=== PATIENT | male | born 1980 | race Caucasian/White ===

== ENCOUNTER 2024-02-29 14:11 | Emergency (ER) | payer MEDICAID, SELFPAY ==
[2024-02-29] VITALS (8 sets, daily range): BP systolic 106–150; BP diastolic 67–89; PULSE 85–100; RESP 15–18; TEMP 36.6–36.8; O2SAT 96–98
--- NOTE | ~2024-02-29 | CT_ITS ---
EXAMINATION: CT brain wo con DATE: 02/29/2024 15:13 INDICATION: Seizure. TECHNIQUE: Computed tomography (CT) of the head was performed without intravenous contrast. The mA wa s adjusted according to patient size. Iterative reconstruction technique was employed. The dose-lengt h product was 605.33 mGy-cm. COMPARISON: None FINDINGS: There is no intracranial hemorrhage, acute infarction, or abnormal intracranial mass lesion . The ventricles are normal in size. There is mild mucosal thickening in the ethmoid sinuses. The mas toid air cells are normal. IMPRESSION: 1. Normal brain. Reviewed, dictated and finalized at location A. IMPRESSION: 1. Normal brain.
--- NOTE | 2024-02-29 15:13 | ED.SEIZURE ---
HPI - Seizure General Chief Complaint: Seizure Stated Complaint: seizures Time Seen by Provider: 02/29/24 14:59 History of Present Illness HPI Narrative: Patient presenting after having a witnessed seizure at [facility], he has never had any seizures in the past, denies any complaints right now other than feeling tired and dizzy present large here states that he witnessed the seizure which showed 20 grand mouth seizure and lasted for several minutes until EMS arrived and gave him Versed, after which he stopped and was slightly confused afterwards, and is now coming back to baseline Related Data Allergies Allergy/AdvReac Type Severity Reaction Status Date / Time codeine AdvReac Nausea and Verified 02/29/24 16:55 Vomiting Review of Systems Review of Systems: All systems reviewed & are unremarkable except as noted in HPI and below Exam Narrative: EXAMINATION OF ORGAN SYSTEMS/BODY AREAS: Constitutional: Vital signs per nursing GENERAL:[No acute distress, non-toxic appearing.] HEAD: Normal with no signs of head trauma. EYES: EOMI, conjunctiva normal ENT: Hearing grossly intact LUNGS: Nonlabored breathing. HEART: [Regular rate and rhythm] ABD: Nondistended EXT: Normal range of motion SKIN: [No rashes or lesions.] NEURO: [Alert and oriented x 3. No gross focal sensory or strength deficits.] PSYCH: Normal affect Course Vital Signs Vital signs: Vital Signs Temperature 98.3 F 02/29/24 14:19 Pulse Rate 100 02/29/24 14:19 Respiratory Rate 16 02/29/24 14:19 Blood Pressure 128/85 02/29/24 14:19 Pulse Oximetry 98 02/29/24 14:19 Oxygen Delivery Room Air 02/29/24 14:19 Temperature 97.8 F 02/29/24 17:01 Pulse Rate 92 02/29/24 17:01 Respiratory Rate 16 02/29/24 17:01 Blood Pressure 140/89 02/29/24 17:01 Pulse Oximetry 97 02/29/24 17:01 Oxygen Delivery Room Air 02/29/24 16:15 MDM - Seizure MDM Narrative Medical decision making narrative: 43-year-old male presenting with new onset seizures occurring today, no personal history however he states he thinks the cousin may have had seizures. Denies any axis drugs or alcohol since he has been present for the last 2 months, he is A&O x4 here, the episodes were witnessed and do seem compatible with epileptic seizures. Workup initiated including CT head which is unremarkable other than urinary tract infection, I did ask patient is concerned for possible STD and he says that his car from [facility], I will put him on antibiotics for UTI versus STDs. He has been observed here for hours and has not had any recurrence of symptoms so I do feel he is stable for discharge at this time with follow-up to Neurology. I did let him know that if he had another episode he come back immediately and we will start him on antiseizure medications at that time. Patient agreeable to this plan. At time of discharge he had no neurologic deficits and no symptoms Lab Data 02/29/24 15:28 02/29/24 15:28 Labs: Lab Results 02/29/24 02/29/24 Range/Units 15:28 15:54 WBC 7.4 (4.5-10.0) K/mm3 RBC 5.21 (4.6-6.20) M/mm3 Hgb 15.5 (14.0-18.0) g/dL Hct 44.8 (42.0-52.0) % MCV 86.0 (80-100) fl MCH 29.8 (26-34) pg MCHC 34.6 (32-36) g/dl RDW 13.3 (11.5-14.5) % Plt Count 218 (150-375) k/mm3 MPV 9.2 (7.4-10.4) fl Immature Gran % (Auto) 0.3 (0-0.5) % Neut % (Auto) 73.7 H (45.5-73.1) % Lymph % (Auto) 17.8 L (18.3-44.2) % [place] % (Auto) 7.1 (2.6-8.5) % Eos % (Auto) 0.4 (0-4.4) % Baso % (Auto) 0.7 (0.2-1.2) % Lymph # (Auto) 1.32 (0.9-3.2) K/mm3 [place] # (Auto) 0.5 (0.1-0.6) K/mm3 Eos # (Auto) 0.0 (0-0.3) K/mm3 Baso # (Auto) 0.1 (0.0-0.1) K/mm3 Abs Immat Gran (auto) 0.02 (0.00-0.031) K/mm3 Absolute Neuts (auto) 5.5 (1.3-6.7) K/mm3 Absolute Nucleated RBC 0.000 (0.0-0.012) K/mm3 Nucleated RBC % 0.0 (0.0-0.2) % PT 13.6 (11.1-14.7) Seconds INR 1.0
[2024-02-29 15:36] LABS: Basophils Absolute Auto 0.1 K/mm3 (0.0-0.1); Basophils Percent Auto 0.7 % (0.2-1.2); Eosinophils Percent Auto 0.4 % (0-4.4); Hematocrit 44.8 % (42.0-52.0); Hemoglobin 15.5 g/dL (14.0-18.0); Immature Granulocyte Absolute 0.02 K/mm3 (0.00-0.031); Immature Granulocyte Percent A 0.3 % (0-0.5); Lymphocytes Absolute Auto 1.32 K/mm3 (0.9-3.2); Lymphocytes Percent Auto 17.8 % (18.3-44.2); Mean Corpuscular HGB Conc 34.6 g/dl (32-36); Mean Corpuscular Hemoglobin 29.8 pg (26-34); Mean Platelet Volume 9.2 fl (7.4-10.4); Monocytes Absolute Auto 0.5 K/mm3 (0.1-0.6); Monocytes Percent Auto 7.1 % (2.6-8.5); Neutrophils Absolute Auto 5.5 K/mm3 (1.3-6.7); Neutrophils Percent Auto 73.7 % (45.5-73.1); Platelet Count Result 218 k/mm3 (150-375); Red Blood Count 5.21 M/mm3 (4.6-6.20); Red Cell Distribution Width 13.3 % (11.5-14.5); White Blood Count 7.4 K/mm3 (4.5-10.0)
[2024-02-29 15:45] LABS: Lactic Acid Reflex 1.7 mmol/L (0.7-2.0)
[2024-02-29 15:46] LABS: Alanine Aminotransferase 17 U/L (6-50); Albumin Level 4.6 g/dL (3.5-5.1); Alkaline Phosphatase 58 U/L (38-126); Anion Gap 8 mmol/L (4-12); Aspartate Amino Transferase 23 U/L (17-59); Bilirubin,Total 0.6 mg/dL (0.2-1.3); Blood Urea Nitrogen 15 mg/dL (9-20); Calcium 9.2 mg/dL (8.4-10.2); Carbon Dioxide 25 mmol/L (22-30); Chloride 103 mmol/L (98-107); Estimated CRCL calculation 104 ml/min; Estimated Glomerular Filt Rate > 60; Glucose 151 mg/dL (65-110); Potassium 4.2 mmol/L (3.4-5.0); Prothrombin Time 13.6 Seconds (11.1-14.7); Sodium 136 mmol/L (137-145)
[2024-02-29 15:47] LABS: Partial Thromboplastin Time 24.2 Seconds (22.3-36.8)
[2024-02-29 16:15] LABS: Appearance Urine Cloudy (Clear); Bacteria Urine 4+ /hpf; Bilirubin Urine Negative (Negative); Blood Urine Negative (Negative); Color Urine Dark Yellow (Yellow); Glucose Urine UA Negative (Negative); Ketones Urine Trace mg/dL (Negative); Leukocyte Esterase Ur 2+ LEU/UL (Negative); Need Manual Microscopic Reviewed; Nitrate Urine Positive (Negative); Protein Urine Trace mg/dL (Negative); RBC Urine 0-2 /hpf (0-2); Specific Grav Ur 1.021 (1.001-1.035); Squamous Epithelial Cell Urine None Seen /hpf (Few); WBC Urine 51-100 /hpf (0-3)
[2024-02-29 16:16] LABS: Add Urine Microscopic? YES
[2024-02-29 16:19] LABS: Amphetamine Screen Urine Negative (Negative); Barbiturate Screen Urine Negative (Negative); Benzodiazepines Screen Urine Positive (Negative); Cannabinoid Screen Urine Negative (Negative); Cocaine Screen Urine Negative (Negative); Methadone Screen Urine Negative (Negative); Opiate Screen Urine Negative (Negative); Phencyclidine Screen Urine Negative (Negative)
[2024-02-29] MEDS: DOXYCYCLINE HYCLATE 100 MG TABLET PO (16:56)
== END 2024-02-29 17:09 ==
PROVIDERS: Emergency Medicine; Emergency Provider Emergency Medicine
DX: R56.9 Unspecified convulsions (principal)
CPT/HCPCS: 36415; 70450; 80053; 80307; 81001; 83605; 85025; 85610; 85730; 87077; 87086; 87088; 87186; 96374; 99284; A9270; J0696